=== PATIENT | male | born 1970 | race Caucasian/White ===

== ENCOUNTER 2020-10-15 12:45 | Emergency (ER) | payer MEDICARE, MEDICAID ==
[2020-10-15] MEDS ORDERED: Albuterol 8 GM Inhaler INH ONE (12:46)
--- NOTE | 2020-10-15 13:12 | EDM.PDOC ---
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, has had L shoulder surgery no cough, no f/c/d went to clinic, Dr Augustin requested further w/u in ED EKG wnl pt in NAD, vss ED ROS GENERAL - Review of Systems Review Of Systems: See Below Constitutional: Reports: No Symptoms HEENT: Reports: No Symptoms Respiratory: Reports: No Symptoms Cardiovascular: Reports: Chest Pain Endocrine: Reports: No Symptoms GI/Abdominal: Reports: No Symptoms : Reports: No Symptoms Musculoskeletal: Reports: No Symptoms Skin: Reports: No Symptoms Neurological: Reports: No Symptoms Psychiatric: Reports: No Symptoms Hematologic/Lymphatic: Reports: No Symptoms Immunologic: Reports: No Symptoms ED EXAM, GENERAL - Physical Exam Exam: See Below Exam Limited By: No Limitations General Appearance: Alert, WD/WN, No Apparent Distress Nose: Normal Inspection Throat/Mouth: Normal Inspection, Normal Lips, Normal Teeth, Normal Voice, No Airway Compromise Head: Atraumatic Neck: Normal Inspection, Supple, Non-Tender, Full Range of Motion. No: Lymphadenopathy (R), Lymphadenopathy (L) Respiratory/Chest: No Respiratory Distress, Lungs Clear, Normal Breath Sounds, Chest Non-Tender Cardiovascular: Regular Rate, Rhythm, No Edema GI/Abdominal: Soft, Non-Tender Back Exam: Normal Inspection, Full Range of Motion. No: CVA Tenderness (R), CVA Tenderness (L) Extremities: Normal Inspection, Normal Range of Motion, Non-Tender, No Pedal Edema Neurological: Alert, Oriented, CN II-XII Intact, Normal Cognition, Normal Gait, No Motor/Sensory Deficits Psychiatric: Normal Affect Skin Exam: Warm, Dry, Intact, Normal Color, No Rash Lymphatic: No Adenopathy Course - Orders/Labs/Meds Orders: Active Orders 24 hr Category Date Time Status EKG Documentation Completion [RC] ASDIRECTED Care 10/15/20 13:07 Ordered C-REACTIVE PROTEIN [CHEM] Stat Lab 10/15/20 13:03 Ordered CBC WITH AUTO DIFF [HEME] Stat Lab 10/15/20 13:03 Ordered COMPREHENSIVE METABOLIC PN,CMP [CHEM] Stat Lab 10/15/20 13:03 Ordered D-DIMER QUANTITATIVE [COAG] Stat Lab 10/15/20 13:03 Ordered TROPONIN I [CHEM] Stat Lab 10/15/20 13:06 Ordered EKG 12 Lead [EK] Routine Ther 10/15/20 13:06 Ordered - My Orders Last 24 Hours: My Active Orders 10/15/20 13:03 C-REACTIVE PROTEIN [CHEM] Stat CBC WITH AUTO DIFF [HEME] Stat COMPREHENSIVE METABOLIC PN,CMP [CHEM] Stat D-DIMER QUANTITATIVE [COAG] Stat 10/15/20 13:06 TROPONIN I [CHEM] Stat EKG 12 Lead [EK] Routine 10/15/20 13:07 EKG Documentation Completion [RC] ASDIRECTED - Assessment/Plan Last 24 Hours: My Active Orders 10/15/20 13:03 C-REACTIVE PROTEIN [CHEM] Stat CBC WITH AUTO DIFF [HEME] Stat COMPREHENSIVE METABOLIC PN,CMP [CHEM] Stat D-DIMER QUANTITATIVE [COAG] Stat 10/15/20 13:06 TROPONIN I [CHEM] Stat EKG 12 Lead [EK] Routine 10/15/20 13:07 EKG Documentation Completion [RC] ASDIRECTED
--- NOTE | 2020-10-15 13:48 | EDM.PDOC ---
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, has had L shoulder surgery no cough, no f/c/d went to clinic, Dr Augustin requested further w/u in ED EKG wnl pt in NAD, vss smokes 1.5 ppd, did have pneumonia ~5y ago and has used HFAs intermittently every since, denies h/o asthma or COPD altho does have wheeze today ran out of HFA, not able to get it refilled pain localized, no radiation, inc'd in AM, no increase with DB 75% of wheezing cleared with one Duoneb L flank Pain Score (Numeric/FACES): 6 - Related Data Allergies Allergy/AdvReac Type Severity Reaction Status Date / Time Penicillins Allergy Difficulty Verified 10/15/20 13:14 Breathing Home Meds: Home Meds Albuterol [Ventolin HFA] 2 puff .XX Q4H PRN #1 inhaler 10/15/20 [Rx] Azithromycin 250 mg PO ASDIRECTED #6 tablet 10/15/20 [Rx] predniSONE [Prednisone] 20 mg PO ASDIRECTED #9 tablet 10/15/20 [Rx] Past Medical History Respiratory History: Reports: Other (See Below) Other Respiratory History: takes inhaler for wheezing Gastrointestinal History: Reports: GERD Musculoskeletal History: Reports: Fracture Other Musculoskeletal History: hx fx nose, Neurological History: Reports: Head Trauma Psychiatric History: Reports: Addiction, Anxiety, Depression Other Psychiatric History: hx ETOH abuse, many drug abuse Endocrine/Metabolic History: Reports: Obesity/BMI 30+ Hematologic History: Reports: Blood Transfusion(s) Dermatologic History: Reports: Other (See Below) Other Dermatologic History: hx folliculitis - Infectious Disease History Infectious Disease History: Reports: Chicken Pox - Past Surgical History Head Surgeries/Procedures: Reports: None HEENT Surgical History: Reports: Naso-Sinus Surgery, Oral Surgery Other HEENT Surgeries/Procedures: 2020 GI Surgical History: Reports: None Musculoskeletal Surgical History: Reports: Amputation, Arthroscopic Procedure, Shoulder Surgery Other Musculoskeletal Surgeries/Procedures:: L shoulder scope, traumatic amputation L forearm, L knee ACL & meniscus tear repair Social & Family History - Family History Family Medical History: No Pertinent Family History - Tobacco Use Tobacco Use Status *Q: Current Every Day Tobacco User Years of Tobacco use: 16 Packs/Tins Daily: 1.5 - Caffeine Use Caffeine Use: Reports: Coffee - Recreational Drug Use Recreational Drug Use: Yes Recreational Drug Type: Reports: Amphetamines (Speed), Cocaine, Marijuana/Hashish, Methamphetamine, Psilocybin (Mushrooms) Other Recreational Drug Type: Smokes pot daily, has used, Cocaine, Meth, Opiates, but hasn't used for year. Recreational Drug Use Frequency: Daily ED ROS GENERAL - Review of Systems Review Of Systems: See Below Constitutional: Reports: No Symptoms. Denies: Fever, Chills HEENT: Reports: No Symptoms Respiratory: Reports: Wheezing Cardiovascular: Reports: Chest Pain. 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 No: Lymphadenopathy (R), Lymphadenopathy (L) Respiratory/Chest: No Respiratory Distress, Lungs Clear, Other (slight tender at ~rib 9 at L posterior axillary line, mild to mod insp/exp wheeze with slight inc'd exp phase) Cardiovascular: Regular Rate, Rhythm, No Edema GI/Abdominal: Normal Bowel Sounds, Soft, Non-Tender, No Distention Back Exam: Normal Inspection, Full Range of Motion. No: CVA Tenderness (R), CVA Tenderness (L) Extremities: Normal Inspection, Normal Range of Motion, Non-Tender, No Pedal Edema, Other (RUE surgically absent below prox humerus) Neurological: Alert, Oriented, CN II-XII Intact, Normal Cognition, Normal Gait, No Motor/Sensory Deficits Psychiatric: Normal Affect Skin Exam: Warm, Dry, Intact, Normal Color, No Rash Lymphatic: No Adenopathy Course - Vital Signs Last Recorded V/S: Last Vital Signs Temp 36.6 C 10/15/20 12:50 Pulse 93 10/15/20 17:32 Resp 20 10/15/20 17:32 BP 148/94 H 10/15/20 17:32 Pulse Ox 92 L 10/15/20 17:32 - Orders/Labs/Meds Orders: Active Orders 24 hr Category Date Time Status EKG Documentation Completion [RC] ASDIRECTED Care 10/15/20 13:07 Active RT Aerosol Therapy [RC] ASDIRECTED Care 10/15/20 15:55 Active Sodium Chloride 0.9% [Saline Flush] Med 10/15/20 16:20 Active 10 ml FLUSH ASDIRECTED PRN Peripheral IV Insertion Adult [OM.PC] Routine Oth 10/15/20 16:21 Ordered EKG 12 Lead [EK] Routine Ther 10/15/20 13:06 Ordered Medication Orders Sodium Chloride (Sodium Chloride 0.9% 10 Ml Syringe) 10 ml FLUSH ASDIRECTED PRN PRN Reason: Keep Vein Open Last Admin: 10/15/20 16:15 Dose: 10 ml Documented by: ORLY Labs: Laboratory Tests 10/15/20 10/15/20 10/15/20 Range/Units 13:00 13:00 13:00 WBC 10.5 H (3.2-10.1) x10-3/uL RBC 5.07 (3.90-5.90) x10(6)uL Hgb 17.4 (12.9-17.7) g/dL Hct 51.7 H (38.3-50.1) % MCV 102.1 H (80.8-98.7) fL MCH 34.3 H (27.0-33.3) pg MCHC 33.6 (28.7-35.3) g/dL RDW 13.5 (12.4-15.0) % Plt Count 197 (117-477) x10(3)uL MPV 9.1 (6.7-11.0) fL Neut % (Auto) 61.1 (40.3-71.8) % Lymph % (Auto) 30.5 (15.8-45.3) % Dickey % (Auto) 6.2 (5.5-15.2) % Eos % (Auto) 1.5 (0.1-6.8) % Baso % (Auto) 0.7 (0.3-3.8) % Neut # (Auto) 6.4 (1.7-6.9) x10-3/uL Lymph # (Auto) 3.2 (0.5-4.5) x10-3/uL Dickey # (Auto) 0.6 (0.0-1.2) x10-3/uL Eos # (Auto) 0.2 (0.0-0.6) x10-3/uL Baso # (Auto) 0.1 (0.0-0.3) x10-3/uL D-Dimer, Quantitative 3.71 H (0.0-0.59) mg/LFEU Sodium 138 (135-145) mmol/L Potassium 4.2 (3.5-5.3) mmol/L Chloride 101 (100-110) mmol/L Carbon Dioxide 24 (21-32) mmol/L BUN 19 H (7-18) mg/dL Creatinine 1.1 (0.70-1.30) mg/dL Est Cr Clr Drug Dosing 80.34 mL/min Estimated GFR (MDRD) > 60 (>60) BUN/Creatinine Ratio 17.3 (9-20) Glucose 103 (80-116) mg/dL Calcium 9.0 (8.6-10.2) mg/dL Total Bilirubin 0.5 (0.1-1.3) mg/dL AST 22 (5-25) IU/L ALT 35 (12-36) U/L Alkaline Phosphatase 105 (56-112) IU/L Troponin I (4.0-60.3) pg/mL C-Reactive Protein (0.5-0.9) mg/dL Total Protein 8.1 H (6.0-8.0) g/dL Albumin 3.9 (3.5-5.2) g/dL Globulin 4.2 g/dL Albumin/Globulin Ratio 0.9 SARS-CoV-2 RNA (STEPHANIE) (NEGATIVE) 10/15/20 10/15/20 10/15/20 Range/Units 13:00 13:00 15:10 WBC (3.2-10.1) x10-3/uL RBC (3.90-5.90) x10(6)uL Hgb (12.9-17.7) g/dL Hct (38.3-50.1) % MCV (80.8-98.7) fL MCH (27.0-33.3) pg MCHC (28.7-35.3) g/dL RDW (12.4-15.0) % Plt Count (117-477) x10(3)uL MPV (6.7-11.0) fL Neut % (Auto) (40.3-71.8) % Lymph % (Auto) (15.8-45.3) % Dickey % (Auto) (5.5-15.2) % Eos % (Auto) (0.1-6.8) % Baso % (Auto) (0.3-3.8) % Neut # (Auto) (1.7-6.9) x10-3/uL Lymph # (Auto) (0.5-4.5) x10-3/uL Dickey # (Auto) (0.0-1.2) x10-3/uL Eos # (Auto) (0.0-0.6) x10-3/uL Baso # (Auto) (0.0-0.3) x10-3/uL D-Dimer, Quantitative (0.0-0.59) mg/LFEU Sodium (135-145) mmol/L Potassium (3.5-5.3) mmol/L Chloride (100-110) mmol/L Carbon Dioxide (21-32) mmol/L BUN (7-18) mg/dL Creatinine (0.70-1.30) mg/dL Est Cr Clr Drug Dosing mL/min Estimated GFR (MDRD) (>60) BUN/Creatinine Ratio (9-20) Glucose (80-116) mg/dL Calcium (8.6-10.2) mg/dL Total Bilirubin (0.1-1.3) mg/dL AST (5-25) IU/L ALT (12-36) U/L Alkaline Phosphatase (56-112) IU/L Troponin I 4.1 (4.0-60.3) pg/mL C-Reactive Protein 2.5 H (0.5-0.9) mg/dL Total Protein (6.0-8.0) g/dL Albumin (3.5-5.2) g/dL Globulin g/dL Albumin/Globulin Ratio SARS-CoV-2 RNA (STEPHANIE) Negative (NEGATIVE) Meds: Medications Generic Name Dose Route Start Last Admin Trade Name Freq PRN Reason Stop Dose Admin Sodium Chloride 10 ml 10/15/20 16:20 10/15/20 16:15 Sodium Chloride 0.9% 10 Ml Syringe FLUSH 10 ml ASDIRECTED PRN Administration Keep Vein Open Discontinued Medications Generic Name Dose Route Start Last Admin Trade Name Freq PRN Reason Stop Dose Admin Albuterol/Ipratropium 3 ml 10/15/20 15:55 10/15/20 16:15 Albuterol/Ipratropium 3.0-0.5 Mg/3 Ml Neb Soln NEB 10/15/20 15:56 3 ml ONETIME ONE Administration Azithromycin 500 mg 10/15/20 17:37 Azithromycin 500 Mg Tab PO 10/15/20 17:38 ONETIME ONE Iopamidol 85 ml 10/15/20 16:14 10/15/20 17:12 Iopamidol 755 Mg/Ml 100 Ml Bottle IV 10/15/20 16:15 85 ml . DIRECTED ONE Administration Iopamidol 85 ml 10/15/20 17:11 10/15/20 17:12 Iopamidol 755 Mg/Ml 100 Ml Bottle IV 10/15/20 17:12 85 ml . DIRECTED ONE Administration Ketorolac Tromethamine 30 mg 10/15/20 15:52 10/15/20 16:19 Ketorolac 30 Mg/Ml Sdv IVPUSH 10/15/20 15:53 30 mg ONETIME ONE Administration Lorazepam 0.5 mg 10/15/20 15:52 10/15/20 16:18 Lorazepam 2 Mg/Ml Sdv IVPUSH 10/15/20 15:53 0.5 mg ONETIME ONE Administration Methylprednisolone Sodium Succinate 125 mg 10/15/20 16:06 04/02/21 17:26 Methylprednisolone Sodium Succinate 125 Mg/2 Ml Sdv IVPUSH 10/15/20 16:07 125 mg ONETIME ONE Administration - Re-Assessments/Exams Free Text/Narrative Re-Assessment/Exam: 10/15/20 18:[address] Augustin in office who sent him here w/u with chest CTA showed mod COPD, bronchiectasis and pul fibrosis inc'd CRP and d-dimer c/w brochiectasis, no PE on chest CTA long discussion re maintenance meds and acute meds, pt verbalized understanding and expressed his appreciation for the information even though the ED was quite busy at the time he was here (8 rooms full, 3 RNs, several transfers and admissions) Departure - Departure Time of Disposition: 17:21 Disposition: Home, Self-Care 01 Condition: Good Clinical Impression: Bronchiectasis with acute exacerbation, COPD exacerbation, Pulmonary fibrosis, Nicotine dependence - Discharge Information *PRESCRIPTION DRUG MONITORING PROGRAM REVIEWED*: Not Applicable *COPY OF PRESCRIPTION DRUG MONITORING REPORT IN PATIENT CHERRI: Not Applicable Prescriptions: Azithromycin 250 mg PO ASDIRECTED #6 tablet predniSONE [Prednisone] 20 mg PO ASDIRECTED #9 tablet Albuterol [Ventolin HFA] 2 puff .XX Q4H PRN #1 inhaler PRN Reason: Wheezing Instructions: Pulmonary Fibrosis, Chronic Obstructive Pulmonary Disease, Preventing Pulmonary Fibrosis , Steps to Quit Smoking Referrals: PCP,None [Primary Care Provider] - Forms: ED Department Discharge Additional Instructions: To open the airways, take prednisone 20 mg 2 tabs today and tomorrow, then 1 tab daily for 5 more days. For infection, take azithromycin 250 mg 2 tabs today, then 1 tab daily for 4 days. To keep airways open, use maintenance inhaler fluticasone-salmeterol 234-14 mcg/dose, one puff 2 times a days. To open airways, use rescue inhaler albuterol 2 puffs every 4 hours as needed. See a doctor in the next 4-5 days at the clinic for recheck. Return to ED if you are feeling worse. Sepsis Event Note (ED) - Evaluation Sepsis Screening Result: No Definite Risk - Focused Exam Vital Signs: Vital Signs Temp Pulse Resp BP Pulse Ox 10/15/20 17:32 93 20 148/94 H 92 L 10/15/20 12:50 36.6 C 89 26 H 151/90 H 97 - My Orders Last 24 Hours: My Active Orders 10/15/20 13:06 EKG 12 Lead [EK] Routine 10/15/20 13:07 EKG Documentation Completion [RC] ASDIRECTED 10/15/20 15:55 RT Aerosol Therapy [RC] ASDIRECTED 10/15/20 16:20 Sodium Chloride 0.9% [Saline Flush] 10 ml FLUSH ASDIRECTED PRN 10/15/20 16:21 Peripheral IV Insertion Adult [OM.PC] Routine - Assessment/Plan Last 24 Hours: My Active Orders 10/15/20 13:06 EKG 12 Lead [EK] Routine 10/15/20 13:07 EKG Documentation Completion [RC] ASDIRECTED 10/15/20 15:55 RT Aerosol Therapy [RC] ASDIRECTED 10/15/20 16:20 Sodium Chloride 0.9% [Saline Flush] 10 ml FLUSH ASDIRECTED PRN 10/15/20 16:21 Peripheral IV Insertion Adult [OM.PC] Routine
[2020-10-15] MEDS ORDERED: Ketorolac 30 MG/ML SDV IVPUSH ONE (15:52)
[2020-10-15] MEDS ORDERED: LORazepam 2 MG/ML SDV IVPUSH ONE (15:52)
[2020-10-15] MEDS ORDERED: Albuterol/Ipratropium 3.0-0.5 MG/3 ML Neb Soln NEB ONE (15:55)
[2020-10-15] MEDS ORDERED: methylPREDNISolone Sodium Succinate 125 MG/2 ML SDV IVPUSH ONE (16:06)
[2020-10-15] MEDS ORDERED: Iopamidol 755 Mg/ML 100 ML Bottle IV ONE ×2 (16:14→17:11)
[2020-10-15] MEDS ORDERED: Sodium Chloride 0.9% 10 ML Syringe FLUSH PRN (16:20)
--- NOTE | 2020-10-15 17:32 | CT ---
COMPUTERIZED ANGIOGRAPHY OF THE CHEST WITH CONTRAST Pain at left posterior back. Increased D-dimer. Question PE. History of smoking for 40 years, 1 to 1-1/2 packs per day. Spiral 1.25 mm axial sections were obtained with 85 cc Isovue 370 at 3.5 cc/sec and then repeated with 85 cc Isovue 370 at 4 cc/sec due to inability for the patient to cooperative fully with breath holding. The second injection was not better than the first as far as opacification of the pulmonary arteries which is less than ideal. Sagittal and coronal reconstructions were obtained. No comparison studies were available for this study obtained on 10/15/2020. Total exam DLP was 1025.54 on the initial examination 949.65 for the second examination. No definite evidence of pulmonary emboli could be identified. No definite mediastinal mass was seen. A moderate degree of mediastinal lymphadenopathy is noted which may be reactive to infection. This is likely in this patient who has evidence of chronic inflammatory disease with bronchiectasis and subpleural densities including areas of pleural thickening and interstitial fibrosis. Degree of pulmonary fibrosis felt to be at least moderate to moderately severe in degree. Pulmonary emphysema--centrilobular likely, is also present of moderate degree. The heart did not appear enlarged. Coronary artery calcifications were present. No pericardial effusion was seen. The upper abdomen included on this study demonstrating no gross abnormality. IMPRESSION: 1. No definite PE but study somewhat limited in that regard due to lack of ideal pulmonary artery concentration of contrast. 2. Pulmonary fibrosis. 3. Pulmonary emphysema. 4. ASHD with coronary artery calcifications noted. Report was called to Dr. Banuelos at 1700 hours, 10/15/2020. [facility]
[2020-10-15] MEDS ORDERED: Azithromycin 500 MG Tab PO ONE (17:37)
== END 2020-10-15 17:50 | disposition home or self-care (01) ==
LOC: FB.ED 12:45
DX: J47.1 Bronchiectasis with (acute) exacerbation (principal); J84.10 Pulmonary fibrosis, unspecified; F17.200 Nicotine dependence, unspecified, uncomplicated; E66.9 Obesity, unspecified; Z68.41 Body mass index [BMI] 40.0-44.9, adult; Z88.0 Allergy status to penicillin; Z20.822 Contact with and (suspected) exposure to COVID-19
CPT/HCPCS: 36415; 71275; 80053; 84484; 85025; 85379; 86140; 93005; 94640; 96374; 96375; 99285-25; A9270-GY; J1885; J2060; J2930; J7620-GY; Q9967; U0002

== ENCOUNTER 2020-10-16 11:41 | Emergency (ER) | payer MEDICARE, MEDICAID ==
--- NOTE | 2020-10-16 12:04 | EDM.PDOC ---
ED HPI GENERAL MEDICAL PROBLEM - General Chief Complaint: Genitourinary Problem Stated Complaint: PAIN Time Seen by Provider: 10/16/20 11:55 Source of Information: Reports: Patient History Limitations: Reports: No Limitations - History of Present Illness INITIAL COMMENTS - FREE TEXT/NARRATIVE: 50-year-old male who reports beginning about 2 weeks ago he had pain in his left mid back. It was mild at the time and has progressively worsened with time. He also has had a cough and some and apparently he was seen yesterday in the clinic and was sent to the emergency department for evaluation because of pleuritic chest pain. He did have an elevated CRP and an elevated d-dimer and had a CTA of his chest performed which showed no evidence of pulmonary embolism did show evidence of bronchiectasis. He was placed on Zithromax, prednisone and he was given long-term inhaler and a rescue inhaler prescription and in addition he had been given Toradol IM and it had is completely alleviated his pain. He was fine until approximately 2-3 a.m. today when he was going to the bathroom and he coughed and felt an immediate sharp and stabbing type pain in his left lateral mid back and since then has had very sharp pains with movement and with cough and with deep breath. He reports that that pain is anywhere from a 5-7/10 while at rest but up to a 10/10 when he moves, coughs or takes a deep breath. There has been no hemoptysis. No fevers or chills. No syncope or presyncope. States that he has been eating and drinking normally. No nausea or vomiting. He should be noted that he did not get his medications until today. He has not taken or used any of his medications today. There are no other associated signs or symptoms. There are no other modifying factors. Onset: Other (2-3 weeks ago acute worsening since 2 to 3 AM today.) Duration: Constant Location: Reports: Chest, Back Quality: Reports: Sharp, Stabbing Severity: Moderate (to have a) Improves with: Reports: Rest Worsens with: Reports: Breathing, Other (Cough), Movement Context: Reports: Other Associated Symptoms: Reports: No Other Symptoms Treatments PRACTICAL NURSING FACULTY: Reports: NSAIDS (Ibuprofen) left flank Pain Score (Numeric/FACES): 10 - Related Data Allergies Allergy/AdvReac Type Severity Reaction Status Date / Time Penicillins Allergy Difficulty Verified 10/15/20 13:14 Breathing Home Meds: Home Meds Albuterol [Ventolin HFA] 2 puff .XX Q4H PRN #1 inhaler 10/15/20 [Rx] Azithromycin 250 mg PO ASDIRECTED #6 tablet 10/15/20 [Rx] predniSONE [Prednisone] 20 mg PO ASDIRECTED #9 tablet 10/15/20 [Rx] Cyclobenzaprine [Flexeril] 10 mg PO TID PRN #15 tab 10/16/20 [Rx] Past Medical History Respiratory History: Reports: COPD, Other (See Below) (Bronchiectasis) Gastrointestinal History: Reports: GERD Musculoskeletal History: Reports: Fracture Other Musculoskeletal History: hx fx nose, Neurological History: Reports: Head Trauma Psychiatric History: Reports: Addiction, Anxiety, Depression Other Psychiatric History: hx ETOH abuse, many drug abuse Endocrine/Metabolic History: Reports: Obesity/BMI 30+ Hematologic History: Reports: Blood Transfusion(s) Dermatologic History: Reports: Other (See Below) Other Dermatologic History: hx folliculitis - Infectious Disease History Infectious Disease History: Reports: Chicken Pox - Past Surgical History HEENT Surgical History: Reports: Naso-Sinus Surgery, Oral Surgery Other HEENT Surgeries/Procedures: 2019 Musculoskeletal Surgical History: Reports: Amputation, Arthroscopic Procedure, Shoulder Surgery Other Musculoskeletal Surgeries/Procedures:: L shoulder scope, traumatic a mputation L forearm, L knee ACL & meniscus tear repair Social & Family History - Tobacco Use Tobacco Use Status *Q: Current Every Day Tobacco User - Caffeine Use Caffeine Use: Reports: Coffee - Alcohol Use Alcohol Use History: Yes Alcohol Use Frequency: Socially (He states occasionally but will not quantitate it anymore than this.) - Living Situation & Occupation Living situation: Reports: Single ED ROS GENERAL - Review of Systems Review Of Systems: See Below Constitutional: Reports: No Symptoms HEENT: Reports: No Symptoms Respiratory: Reports: Shortness of Breath, Wheezing, Cough. Denies: Hemoptysis Cardiovascular: Reports: Chest Pain (Left posterior chest pain) GI/Abdominal: Reports: No Symptoms : Reports: No Symptoms Musculoskeletal: Reports: Back Pain (Left mid back/posterior chest pain) Skin: Reports: No Symptoms Neurological: Reports: No Symptoms Psychiatric: Reports: No Symptoms Hematologic/Lymphatic: Reports: No Symptoms Immunologic: Reports: No Symptoms ED EXAM, GI/ABD - Physical Exam Exam: See Below Exam Limited By: Uncooperative General Appearance: WD/WN Eyes: Bilateral: Normal Appearance, EOMI Ears: Normal External Exam, Hearing Grossly Normal Nose: Normal Inspection, Normal Mucosa, No Blood Throat/Mouth: Normal Inspection, Normal Voice, No Airway Compromise Head: Atraumatic, Normocephalic Neck: Normal Inspection Respiratory/Chest: No Accessory Muscle Use, Wheezing, Splinting (Secondary to pain) Cardiovascular: Normal Peripheral Pulses, Regular Rate, Rhythm, No Gallop, No Murmur GI/Abdominal Exam: Normal Bowel Sounds, Soft, Non-Tender, No Mass Back Exam: CVA Tenderness (L), Decreased Range of Motion (Secondary to pain), Muscle Spasm (On the left.) Extremities: Normal Range of Motion, Normal Capillary Refill, Pedal Edema (Mild bilaterally.) Neurological: Alert, Oriented, CN II-XII Intact, Normal Cognition, No Motor/Sensory Deficits Skin Exam: Warm, Dry, Intact, Normal Color, No Rash Course - Vital Signs Last Recorded V/S: Last Vital Signs Temp 35.9 C L 10/16/20 11:45 Pulse 95 10/16/20 13:48 Resp 16 10/16/20 13:48 BP 128/74 10/16/20 13:48 Pulse Ox 95 10/16/20 13:48 - Orders/Labs/Meds Orders: Active Orders 24 hr Category Date Time Status RT Aerosol Therapy [RC] ASDIRECTED Care 10/16/20 12:18 Active Chest 2V [CR] Stat Exams 10/16/20 12:17 Taken Meds: Medications Discontinued Medications Generic Name Dose Route Start Last Admin Trade Name Gerson PRN Reason Stop Dose Admin Albuterol/Ipratropium 3 ml 10/16/20 12:18 10/16/20 12:45 Albuterol/Ipratropium 3.0-0.5 Mg/3 Ml Neb Soln NEB 10/16/20 12:19 3 ml ONETIME ONE Administration Ketorolac Tromethamine 60 mg 10/16/20 12:18 10/16/20 12:27 Ketorolac 60 Mg/2 Ml Sdv IM 10/16/20 12:19 60 mg ONETIME ONE Administration - Radiology Interpretation Free Text/Narrative:: Chest x-ray shows lingular haziness/infiltrate. No pneumothorax. - Re-Assessments/Exams Free Text/Narrative Re-Assessment/Exam: 10/16/20 13:30: Patient feels much better after the Toradol and the neb. His pain is down to a 4/10. His chest x-ray does show some haziness in the area. I don't see any definite fracture I suspect that he could have sure from the cough that this haziness/infiltrate represents what was beginning last few days. He is on antibiotic to treat this as well as prednisone and inhalers for his wheezing. I will add Flexeril for muscle spasm and he can continue to use ibuprofen and Tylenol for his pain. Departure - Departure Time of Disposition: 13:46 Disposition: Home, Self-Care 01 Condition: Good Clinical Impression: Spasm of thoracic back muscle, COPD exacerbation Rib fracture Qualifiers: Encounter type: initial encounter Rib fracture type: single rib Fracture type: closed Laterality: left Qualified Code(s): S22.32XA - Fracture of one rib, left side, initial encounter for closed fracture Left lower lobe pneumonia Qualifiers: Pneumonia type: due to unspecified organism Qualified Code(s): J18.9 - Pneumonia, unspecified organism - Discharge Information Prescriptions: Cyclobenzaprine [Flexeril] 10 mg PO TID PRN #15 tab PRN Reason: Muscle pain and muscle spasm Instructions: Chronic Obstructive Pulmonary Disease Exacerbation, [id number], Muscle Cramps and Spasms, [id number], Rib Fracture, [id number], Community- Acquired Pneumonia, Adult, [id number] Referrals: PCP,None [Primary Care Provider] - Forms: ED Department Discharge Additional Instructions: Your chest x-ray does show evidence of a developing pneumonia on the left side. I think this was developing yesterday when you were seen. There was no definite rib fracture but from what you described, it sounds like you probably cracked a rib on the left when you coughed real hard this morning and that is a source of your pain associated with some muscle spasm related to this cracked rib. You need to take all of the medication that the doctor prescribed you yesterday as he directed. I have given you a prescription of Flexeril that you can take for the muscle pain and muscle spasm. You should continue to take Tylenol and ibuprofen for pain as needed. Back to the emergency department for worse breathing, unrelenting vomiting, severe weakness, coughing up blood or any other concerning sign or symptom. Sepsis Event Note (ED) - Focused Exam Vital Signs: Vital Signs Temp Pulse Resp BP Pulse Ox 10/16/20 13:48 95 16 128/74 95 10/16/20 11:45 35.9 C L 105 H 15 135/104 H 95 - My Orders Last 24 Hours: My Active Orders 10/16/20 12:17 Chest 2V [CR] Stat 10/16/20 12:18 RT Aerosol Therapy [RC] ASDIRECTED - Assessment/Plan Last 24 Hours: My Active Orders 10/16/20 12:17 Chest 2V [CR] Stat 10/16/20 12:18 RT Aerosol Therapy [RC] ASDIRECTED
[2020-10-16] MEDS ORDERED: Albuterol/Ipratropium 3.0-0.5 MG/3 ML Neb Soln NEB ONE (12:18)
[2020-10-16] MEDS ORDERED: Ketorolac 60 MG/2 ML SDV IM ONE (12:18)
--- NOTE | 2020-10-18 11:51 | CR ---
INDICATION: Left posterolaterally has pain with breathing and cough. CHEST TWO VIEWS: Two PA views and a lateral view of the chest were obtained 10/16/20 and compared with 10/15/20 CT chest. Heavy markings are noted at the lung bases, perhaps more prominently on the left than right making it difficult to exclude areas of patchy bronchopneumonia superimposed on fibrosis in this patient. Findings are also compatible with COPD. The heart did not appear grossly enlarged. The patient was turned to the left on both PA views. No definite pleural effusion was seen. IMPRESSION: 1. Cannot exclude patchy bronchopneumonia and atelectasis at the lung bases, but particularly at the left lung base. Findings may simply be on the basis of fibrosis, however. 2. COPD. MTDD
== END 2020-10-16 13:52 | disposition home or self-care (01) ==
LOC: FB.ED 11:41
DX: S22.32XA Fracture of one rib, left side, initial encounter for closed fracture (principal); J18.9 Pneumonia, unspecified organism; J44.1 Chronic obstructive pulmonary disease with (acute) exacerbation; M62.830 Muscle spasm of back; Z88.0 Allergy status to penicillin; Z72.0 Tobacco use; X58.XXXA Exposure to other specified factors, initial encounter
CPT/HCPCS: 71046; 94640; 96372; 99285-25; J1885; J7620-GY

== ENCOUNTER 2020-12-29 10:12 | Emergency (ER) | payer MEDICARE, MEDICAID ==
[2020-12-29] MEDS ORDERED: Ketorolac 30 MG/ML SDV IM ONE (11:18)
[2020-12-29] MEDS ORDERED: Acetaminophen 500 MG Tab PO ONE (11:18)
[2020-12-29] MEDS ORDERED: traMADol 50 MG Tab PO ONE (11:19)
[2020-12-29] MEDS ORDERED: Cyclobenzaprine 10 MG Tab PO STA (11:27)
[2020-12-29] MEDS ORDERED: predniSONE 20 MG Tab PO STA (11:27)
--- NOTE | 2020-12-29 11:38 | EDM.PDOC ---
ED HPI GENERAL MEDICAL PROBLEM - General Stated Complaint: BACK PAIN Time Seen by Provider: 12/29/20 10:25 Source of Information: Reports: Patient History Limitations: Reports: No Limitations - History of Present Illness INITIAL COMMENTS - FREE TEXT/NARRATIVE: Patient presented to the ED because left rib pain after an intense cough and he hheard a pop. He has a history of COPD and Bronchiectasis and he is coughing more than usual for the pas 3-4 days productive of greenish pghlegm. He also c/o dyspnea and wheezing and he ran out of his albuterol neb. There is no associated fever, chills. Left side Pain Score (Numeric/FACES): 9 - Related Data Allergies Allergy/AdvReac Type Severity Reaction Status Date / Time Penicillins Allergy Difficulty Verified 10/15/20 13:14 Breathing Home Meds: Home Meds Albuterol [Ventolin HFA] 2 puff .XX Q4H PRN #1 inhaler 10/15/20 [Rx] Azithromycin 250 mg PO ASDIRECTED #6 tablet 10/15/20 [Rx] predniSONE [Prednisone] 20 mg PO ASDIRECTED #9 tablet 10/15/20 [Rx] Cyclobenzaprine [Flexeril] 10 mg PO TID PRN #15 tab 10/16/20 [Rx] Albuterol/Ipratropium [DuoNeb 3.0-0.5 MG/3 ML] 3 ml INH Q4H PRN #30 neb 12/29/20 [Rx] Levofloxacin [Levaquin] 500 mg PO DAILY #10 tablet 12/29/20 [Rx] predniSONE [Prednisone] 20 mg PO DAILY #10 tablet 12/29/20 [Rx] traMADol [Ultram] 100 mg PO Q8H PRN #30 tab 12/29/20 [Rx] Past Medical History Respiratory History: Reports: COPD, Other (See Below) (Bronchiectasis) Other Respiratory History: takes inhaler for wheezing; chronic smoker Gastrointestinal History: Reports: GERD Musculoskeletal History: Reports: Fracture Other Musculoskeletal History: hx fx nose, Neurological History: Reports: Head Trauma Psychiatric History: Reports: Addiction, Anxiety, Depression Other Psychiatric History: hx ETOH abuse, many drug abuse Endocrine/Metabolic History: Reports: Obesity/BMI 30+ Hematologic History: Reports: Blood Transfusion(s) Dermatologic History: Reports: Other (See Below) Other Dermatologic History: hx folliculitis - Infectious Disease History Infectious Disease History: Reports: Chicken Pox - Past Surgical History Head Surgeries/Procedures: Reports: None HEENT Surgical History: Reports: Naso-Sinus Surgery, Oral Surgery Other HEENT Surgeries/Procedures: 2019 GI Surgical History: Reports: None Musculoskeletal Surgical History: Reports: Amputation, Arthroscopic Procedure, Shoulder Surgery Other Musculoskeletal Surgeries/Procedures:: L shoulder scope, traumatic amputation L forearm, L knee ACL & meniscus tear repair Social & Family History - Family History Family Medical History: No Pertinent Family History - Caffeine Use Caffeine Use: Reports: Coffee - Living Situation & Occupation Living situation: Reports: Single ED ROS GENERAL - Review of Systems Review Of Systems: See Below Constitutional: Reports: No Symptoms HEENT: Reports: No Symptoms Respiratory: Reports: Wheezing, Pleuritic Chest Pain, Cough, Sputum Cardiovascular: Reports: No Symptoms Endocrine: Reports: No Symptoms GI/Abdominal: Reports: No Symptoms : Reports: No Symptoms Musculoskeletal: Reports: No Symptoms Skin: Reports: No Symptoms Neurological: Reports: No Symptoms Psychiatric: Reports: No Symptoms Hematologic/Lymphatic: Reports: No Symptoms ED EXAM, GENERAL - Physical Exam Exam: See Below Exam Limited By: No Limitations General Appearance: Alert, No Apparent Distress Ears: Normal External Exam, Normal Canal Nose: Normal Inspection, Normal Mucosa, No Blood Throat/Mouth: Normal Inspection, Normal Lips, Normal Teeth Head: Atraumatic, Normocephalic Neck: Normal Inspection, Supple, Non-Tender, Full Range of Motion Respiratory/Chest: No Respiratory Distress, Normal Breath Sounds, Decreased Breath Sounds, Wheezing Cardiovascular: Normal Peripheral Pulses, Regular Rate, Rhythm, No Edema GI/Abdominal: Normal Bowel Sounds, Soft, Non-Tender, No Organomegaly Back Exam: Normal Inspection, Full Range of Motion Extremities: Normal Inspection, Normal Range of Motion, Non-Tender, No Pedal Edema, Normal Capillary Refill Neurological: Alert, Oriented, CN II-XII Intact, Normal Cognition, Normal Gait, Normal Reflexes, No Motor/Sensory Deficits Psychiatric: Normal Affect Course - Vital Signs Text/Narrative:: CXR-see result Duoneb x1 Toradol 30 mg IM x1 Tramdol 100 mg PO x1 Tylenol 1000 mg Po x1 Prednisone 40 mg PO x1 Flexeril 10 mg po x1 Last Recorded V/S: Last Vital Signs Temp 35.2 C L 12/29/20 10:20 Pulse 98 12/29/20 12:00 Resp 18 12/29/20 12:00 BP 138/82 12/29/20 12:00 Pulse Ox 94 L 12/29/20 12:00 - Orders/Labs/Meds Meds: Medications Discontinued Medications Generic Name Dose Route Start Last Admin Trade Name Freq PRN Reason Stop Dose Admin Acetaminophen 1,000 mg 12/29/20 11:18 12/29/20 11:39 Acetaminophen 500 Mg Tab PO 12/29/20 11:19 1,000 mg ONETIME ONE Administration Albuterol/Ipratropium 3 ml 12/29/20 11:47 12/29/20 11:58 Albuterol/Ipratropium 3.0-0.5 Mg/3 Ml Neb Soln NEB 12/29/20 11:48 3 ml NOW STA Administration Cyclobenzaprine HCl 10 mg 12/29/20 11:27 12/29/20 11:40 Cyclobenzaprine 10 Mg Tab PO 12/29/20 11:28 10 mg NOW STA Administration Ketorolac Tromethamine 30 mg 12/29/20 11:18 12/29/20 11:40 Ketorolac 30 Mg/Ml Sdv IM 12/29/20 11:19 30 mg ONETIME ONE Administration Prednisone 40 mg 12/29/20 11:27 12/29/20 11:40 Prednisone 20 Mg Tab PO 12/29/20 11:28 40 mg NOW STA Administration Tramadol HCl 100 mg 12/29/20 11:19 12/29/20 11:40 Tramadol 50 Mg Tab PO 12/29/20 11:20 100 mg ONETIME ONE Administration Departure - Departure Time of Disposition: 11:50 Disposition: Home, Self-Care 01 Condition: Good Clinical Impression: COPD exacerbation, Bronchiectasis, Pneumonia - Discharge Information Prescriptions: Albuterol/Ipratropium [DuoNeb 3.0-0.5 MG/3 ML] 3 ml INH Q4H PRN #30 neb PRN Reason: Shortness Of Breath Levofloxacin [Levaquin] 500 mg PO DAILY #10 tablet predniSONE [Prednisone] 20 mg PO DAILY #10 tablet traMADol [Ultram] 100 mg PO Q8H PRN #30 tab PRN Reason: Pain Instructions: Chronic Obstructive Pulmonary Disease Exacerbation, [id number], Bronchiectasis Referrals: Lulú Sherman PA-C [Primary Care Provider] - Forms: ED Department Discharge Additional Instructions: Please read discharge instructions on Bronchiectasis, COPD, Pneumonia Prednisone 20 mg daily for 10 days Levaquin 500 mg daily for 10 days Duoneb every 4-6 hours as needed for wheezing and shortness of breath Sepsis Event Note (ED) - Focused Exam Vital Signs: Vital Signs Temp Pulse Resp BP Pulse Ox 12/29/20 12:00 98 18 138/82 94 L 12/29/20 10:20 35.2 C L 110 H 24 H 149/93 H 93 L
[2020-12-29] MEDS ORDERED: Albuterol/Ipratropium 3.0-0.5 MG/3 ML Neb Soln NEB STA (11:47)
--- NOTE | 2020-12-29 12:13 | CR ---
INDICATION: Left rib pain. CHEST ONE VIEW: Portable AP upright view of the chest was obtained 12/29/20 and compared with 10/16/20. There appears to be infiltration at the left lung base and right mid lung field as well as the right lung base which may represent pneumonia. The heart size is difficult to evaluate with portable technique and a poor inspiration. When clinically possible, full inspiration PA and lateral views of the chest may be helpful in that regard. IMPRESSION: Findings are compatible with bilateral pneumonia, although some unusual pulmonary edema could be present. Full inspiration PA and lateral views of the chest may be helpful for further evaluation. MTDD
== END 2020-12-29 12:50 | disposition home or self-care (01) ==
LOC: FB.ED 10:12
DX: J44.1 Chronic obstructive pulmonary disease with (acute) exacerbation (principal); J18.9 Pneumonia, unspecified organism; E66.9 Obesity, unspecified; Z88.0 Allergy status to penicillin; Z68.41 Body mass index [BMI] 40.0-44.9, adult
CPT/HCPCS: 71045; 94640; 96372; 99283-25; 99284; A9270-GY; J1885; J7512; J7620-GY

== ENCOUNTER 2021-10-13 10:54 | Emergency (ER) | payer MEDICARE, MEDICAID ==
[2021-10-13] MEDS ORDERED: Ibuprofen 800 MG Tab PO ONE (11:31)
[2021-10-13] MEDS ORDERED: Acetaminophen 500 MG Tab PO ONE (11:31)
[2021-10-13] MEDS ORDERED: Lidocaine 2% Viscous Solution 15 ML UD PO ONE (11:31)
== END 2021-10-13 11:55 | disposition home or self-care (01) ==
LOC: FB.ED 10:54
DX: K05.10 Chronic gingivitis, plaque induced (principal); J44.9 Chronic obstructive pulmonary disease, unspecified; K21.9 Gastro-esophageal reflux disease without esophagitis; E66.9 Obesity, unspecified; Z68.41 Body mass index [BMI] 40.0-44.9, adult; Z88.0 Allergy status to penicillin
CPT/HCPCS: 99282; A9270-GY

== ENCOUNTER 2022-09-28 17:08 | Emergency (ER) | payer MEDICARE, MEDICAID ==
[2022-09-28] MEDS ORDERED: Diphtheria,Pertussis(Acell),Tetanus Vaccine 0.5 ML Syringe IM ONE (17:24)
[2022-09-28] MEDS ORDERED: Cephalexin 500 MG Cap PO ONE (17:24)
== END 2022-09-28 18:45 | disposition home or self-care (01) ==
LOC: FB.ED 17:08
DX: S61.211A Laceration without foreign body of left index finger without damage to nail, initial encounter (principal); S61.213A Laceration without foreign body of left middle finger without damage to nail, initial encounter; J44.9 Chronic obstructive pulmonary disease, unspecified; K21.9 Gastro-esophageal reflux disease without esophagitis; E66.9 Obesity, unspecified; Z68.41 Body mass index [BMI] 40.0-44.9, adult; Z88.0 Allergy status to penicillin; Z72.0 Tobacco use; Z23 Encounter for immunization; W54.0XXA Bitten by dog, initial encounter
CPT/HCPCS: 12002; 90471; 90715; 99282; 99283-25; A9270-GY

== ENCOUNTER 2024-04-25 13:54 | Emergency (ER) | payer MEDICARE, MEDICAID ==
[2024-04-25] MEDS ORDERED: Acetaminophen/oxyCODONE 325-5 MG Tab PO ONE (13:55)
[2024-04-25 15:09] LABS: BASOPHILS ABSOLUTE AUTO 0.1 x10-3/uL (0.0-0.3); BASOPHILS PERCENT AUTO 1.1 % (0.3-3.8); EOSINOPHILS ABSOLUTE AUTO 0.1 x10-3/uL (0.0-0.6); EOSINOPHILS PERCENT AUTO 1.2 % (0.1-6.8); HEMATOCRIT 46.1 % (38.3-50.1); LYMPHOCYTES ABSOLUTE AUTO 1.6 x10-3/uL (0.5-4.5); LYMPHOCYTES PERCENT AUTO 27.8 % (15.8-45.3); MEAN CORPUSCULAR HEMOGLOBIN 33.9 pg (27.0-33.3); MEAN CORPUSCULAR HGB CONC 34.7 g/dL (28.7-35.3); MEAN CORPUSCULAR VOLUME 97.8 fL (80.8-98.7); MONOCYTES ABSOLUTE AUTO 0.3 x10-3/uL (0.0-1.2); NEUTROPHILS ABSOLUTE AUTO 3.7 x10-3/uL (1.7-6.9); NEUTROPHILS PERCENT AUTO 63.9 % (40.3-71.8); PLATELET COUNT,PLT 106 x10(3)uL (117-477); RED BLOOD CELL COUNT 4.72 x10(6)uL (3.90-5.90); RED CELL DISTRIBUTION WIDTH 13.9 % (12.4-15.0); WHITE BLOOD CELL COUNT,WBC 5.8 x10-3/uL (3.2-10.1)
[2024-04-25 15:12] LABS: BLOOD UREA NITROGEN,BUN 20 mg/dL (7-18); CALCIUM 12.6 mg/dL (8.6-10.2); CARBON DIOXIDE,CO2 25 mmol/L (21-32); CHLORIDE,CL 98 mmol/L (100-110); ESTIMATED GFR 90 mL/min (>60); GLUCOSE RANDOM 95 mg/dL (80-116); POTASSIUM,K 3.8 mmol/L (3.5-5.3); SODIUM,NA 135 mmol/L (135-145)
[2024-04-25 15:30] LABS: A/G RATIO 0.7; ALANINE AMINOTRANSFERASE,ALT 47 U/L (12-36); ALBUMIN 3.3 g/dL (3.5-5.2); ALKALINE PHOSPHATASE 248 IU/L (56-112); BILIRUBIN TOTAL 0.8 mg/dL (0.1-1.3); PROTEIN TOTAL,TP 7.9 g/dL (6.0-8.0)
[2024-04-25 15:33] LABS: ASPARTATE AMNIOTRANSFERASE,AST 165 IU/L (5-25)
[2024-04-25 15:41] LABS: BILIRUBIN,URINE NEGATIVE (NEGATIVE); GLUCOSE,URINE NORMAL (NORMAL); KETONES,URINE 15 mg/dL (NEGATIVE); LEUKOCYTE ESTERASE,URINE NEGATIVE (NEGATIVE); NITRITE,URINE NEGATIVE (NEGATIVE); OCCULT BLOOD,URINE MODERATE (NEGATIVE); PROTEIN,URINE TRACE mg/dL (NEGATIVE); UROBILINOGEN,URINE NORMAL (NEGATIVE)
[2024-04-25 15:42] LABS: APPEARANCE,URINE CLEAR (CLEAR); BACTERIA,URINE FEW (NS); COLOR,URINE ORANGE (YELLOW); HYALINE CASTS,URINE FEW (NS); SQUAMOUS EPITHELIAL CELLS,UR FEW (NS,R,O); WBC,URINE 0-5 (0-5)
[2024-04-25] MEDS ORDERED: Ketorolac 30 MG/ML SDV IM ONE (16:03)
[2024-04-25] MEDS ORDERED: Cyclobenzaprine 10 MG Tab PO ONE (16:03)
[2024-04-25] MEDS ORDERED: Naloxone 0.4 MG/ML SDV IVPUSH PRN (16:13)
[2024-04-25] MEDS ORDERED: HYDROmorphone 2 MG/ML SDV IVPUSH ONE (16:13)
[2024-04-25] MEDS ORDERED: Sodium Chloride 0.9% 10 ML Syringe FLUSH PRN (16:13)
[2024-04-25] MEDS: Cyclobenzaprine 10 MG Tab PO ONE (16:34)
[2024-04-25] MEDS: Ondansetron 4 MG/2 ML SDV IVPUSH ONE (16:34)
[2024-04-25] MEDS: Ketorolac 30 MG/ML SDV IVPUSH ONE (16:36)
[2024-04-25] MEDS: Sodium Chloride 0.9% 500 ML IV ONE (17:02)
[2024-04-25] MEDS: Iopamidol 755 Mg/ML 100 ML Bottle IV SCH (17:19)
[2024-04-25] MEDS: Levofloxacin 750 MG Tab PO ONE (19:18)
== END 2024-04-25 19:14 | disposition home or self-care (01) ==
LOC: FB.ED 13:54
DX: J18.0 Bronchopneumonia, unspecified organism (principal); R91.8 Other nonspecific abnormal finding of lung field; J44.9 Chronic obstructive pulmonary disease, unspecified; F17.210 Nicotine dependence, cigarettes, uncomplicated; Z79.899 Other long term (current) drug therapy; Z88.0 Allergy status to penicillin
CPT/HCPCS: 36415; 71260; 72128; 72131; 74177; 80053; 81001; 85025; 96361; 96374; 96375; 99284; A9270; J1885; J2405; J7040; Q9967